=== PATIENT | male | born 1970 | race Hispanic/Latino ===

== ENCOUNTER 2018-07-12 07:50 | Day surgery (SDC) | payer OTHER, SELFPAY ==
[2018-06-30 09:08] VITALS: BMI 41.9
[2018-07-12] VITALS (11 sets, daily range): BP systolic 136–183; BP diastolic 88–111; PULSE 63–89; RESP 14–21; TEMP 35.9–36.4; O2SAT 93–99; BMI 41.9
[2018-07-12] MEDS: LACTATED RINGERS 1,000 ML 42 ML IV (09:14)
--- NOTE | 2018-07-12 09:59 | PM.PREOP ---
Pre-operative Note Interval Note History & Physical reviewed/Exam performed by Physician: Yes Changes to H&P: No
[2018-07-12] MEDS: MIDAZOLAM 2 MG/2 ML VIAL IV (10:35)
--- NOTE | 2018-07-12 10:50 | SUR.PREOP ---
Block start time []1043 . Monitoring initiated and maintained throughout procedure. Oxygen and medications given per anesthesiologist instructions. Patient remained stable throughout procedure, no adverse reactions noted. Block end time []1047 .
[2018-07-12] MEDS: CEFAZOLIN 2 GM/100 ML FROZ.PIGGY IV (10:55)
--- NOTE | 2018-07-12 11:27 | SUR.OPER ---
Lateral on padded OR bed with collins bag positioner, head on pillow, gel axillary roll in place, bottom leg bent with gel pad under knee to foot, upper leg straight and supported with pillows. Operative arm secured in shoulder positioning suspension device. non-operative arm secured on padded arm board. Safety belt at hip, tape over blanket securing lower legs.
[2018-07-12] MEDS: BUPIVACAINE 0.5% W/ EPI (PF) VIAL 30 ML INJ (11:34)
[2018-07-12] MEDS: SODIUM CHLORIDE IRRIG SOLUTION 3,000 ML, EPINEPHrine 1 MG IRR (11:36)
--- NOTE | 2018-07-12 12:33 | SUR.PHASEI ---
1218 BP 183/111, Rx given by Dr. Guzman 1228 Dr. Guzman informed to glucose 148 and diastolic BP 103. No orders given.
--- NOTE | 2018-07-12 12:36 | P.OP_ITS ---
Operative Date/Time/Diagnoses Date of procedure: 07/12/18 Time of procedure: 12:20 Pre-op diagnosis: 1. Right shoulder biceps tendinitis 2. Right shoulder acromioclavicular osteoarthritis 3. Right shoulder subacromial impingement Post-op diagnosis: other (Postop diagnosis is type 2 slap lesion of right shoulder rather than biceps tendinitis.) Procedure & Clinicians Procedure: 1. Right shoulder arthroscopic biceps tenodesis 2. Right shoulder arthroscopic distal clavicle excision 3. Right shoulder arthroscopic subacromial decompression Same procedure as scheduled: Yes Indications: The patient is a 48-year-old gentleman with a prolonged history of right shoulder pain that has not responded to extensive nonoperative measures. He appears to have signs of biceps tendinitis, impingement and acromial clavicular osteoarthritis on exam. These have been confirmed on MRI were possible. he has agreed to surgery after discussion the risks benefits and alternatives. Risks discussed included but were not limited to: Failure to improve, stiffness, infection, nerve damage, deep venous thrombosis, pulmonary embolism, stroke, myocardial infarction, permanent paralysis and . Surgeon: Levi Quiñones Click Yes if Unassisted: Yes Anesthesia Type: General and Peripheral nerve block Operative Notes Findings: 1. Normal glenohumeral cartilage 2. Glenoid labrum notable for superior fraying and undermining of the biceps insertion 3. Normal glenohumeral ligaments 4. Normal subscapularis 5. Biceps tendon in good condition with the exception of its insertion which was in a type 2 slap lesion. 6. Normal supraspinatus 7. Normal infraspinatus 8. Normal axillary pouch 9. Intact rotator cuff from the bursal surface 10. Type 2 acromion with impingement lesion 11. Severe osteoarthritic change of the acromioclavicular joint 12. Examination under anesthesia notable for full range of motion and no evidence of pathologic laxity. Closure Type: primary Specimen(s): none sent Prosthetic devices, grafts, tissues, transplants, or devices: None Estimated Blood Loss (mL): 10 Blood products transfused: none Procedure in detail: The patient was seen in the preoperative area where he identified the right shoulder as the operative site and this was marked with my initials. He went underwent induction of an interscalene block and received preoperative antibiotics with appropriate 1st generation cephalosporin. Was taken to the operating room and placed on the operating room table in a supine position where he underwent induction of a general anesthetic. Following the onset of satisfactory anesthesia his shoulders were examined with result given above. He was then repositioned in left lateral decubitus position with an axillary roll and padding for all pressure points. He was stabilized in this position using the beanbag and adhesive tape. The right arm was prepared with fingertips the base and neck with ChloraPrep in the usual fashion and draped through sterile drapes. The subcutaneous landmarks were outlined on the skin with a marking pen. The right arm was placed in 10 lb of balanced skin suspension. A posterior portal was created and the arthroscope was inserted into the glenohumeral joint. Diagnostic arthroscopy ensued with the results given above. During diagnostic arthroscopy and anterior portal was created for the shaver. This was initially used to debride the fraying of the superior labrum. This revealed that there was in fact a type 2 slap lesion underlying the fraying and therefore I elected to do a biceps tenodesis. The arthroscopic with was withdrawn from the glenohumeral joint and placed in the subacromial space through the posterior portal. A lateral portal was created for instrumentation. The type 2 acromion was converted to a type run using the cutting block technique. The distal 8-10 mm of clavicle were excised due to the arthritis there. We then returned the arthroscope into the glenohumeral joint. a percutaneous trans cuff suture technique was used to place a mattress suture through the biceps and into the rotator interval. The biceps was then cut to complete the biceps treatment. The arthroscope was then removed from the glenohumeral joint placed in the subacromial space once again. The sutures were identified and tied. This completed the biceps tenodesis. At this point all arthroscopic equipment was removed. The wounds were closed with 4 0 Monocryl and Steri-Strips. Dressings of sterile 4x4s, an ABD and adhesive dressing were applied the patient's arm was placed in a sling. He was transpor migue to the recovery room in good condition having tolerated the procedure well. Complications: none Condition: stable Disposition: PACU Plan for aftercare: The patient will be discharged today. He will be maintained on a standard arthroscopic subacromial decompression protocol with the additional restriction of lifting no more than 1 lb with the biceps for the 1st 4 weeks to allow the tenodesis to scar in.
[2018-07-12] MEDS: fentaNYL 100 MCG/2 ML INJ 50 MCG IV ×2 (12:43→12:55)
[2018-07-12] MEDS: hydrOXYzine pamoate 25 MG CAPSULE PO (13:00)
[2018-07-12] MEDS: OXYCODONE/ACETAMINOPHEN 5/325 TABLET 1 TAB PO (13:00)
--- NOTE | 2018-07-12 13:11 | SUR.PHASEI ---
Spoke with Dr. Guzman, showed him VS strip and asked if he wanted more Rx for diastolic BP. No order, patient to resume Bp med at home.
--- NOTE | 2018-07-12 13:18 | SUR.PHASEI ---
1318 report to [facility]; stable.
== END 2018-07-12 13:45 | disposition home or self-care (01) ==
PROVIDERS: PCP Family Medicine; Visit Provider Orthopaedic Surgery
PROC: (CPT 29805; principal; 2018-07-12 10:45)
DX: M75.41 Impingement syndrome of right shoulder (principal); M19.011 Primary osteoarthritis, right shoulder; G89.18 Other acute postprocedural pain; I10 Essential (primary) hypertension; E11.9 Type 2 diabetes mellitus without complications; Z79.84 Long term (current) use of oral hypoglycemic drugs; Z68.41 Body mass index [BMI] 40.0-44.9, adult; S43.431A Superior glenoid labrum lesion of right shoulder, initial encounter
CPT/HCPCS: 29828; 29824; 29826; 64415; J0171; J0690; J2250; J2405; J2704; J3010

== ENCOUNTER → 2024-09-22 08:42 | Outpatient (CLI) | payer OTHER, SELFPAY | LOC: PHYS 08:44 | PROVIDERS: Family Provider Family Medicine; PCP Family Medicine; Referring Provider Registered Nurse; Visit Provider Registered Nurse | DX: M67.814 Other specified disorders of tendon, left shoulder (principal) | CPT/HCPCS: 95886; 95910 ==